=== PATIENT | male | born 1985 ===

== ENCOUNTER 2022-03-10 06:17 | Day surgery (SDC) | payer OTHER ==
[~2022-03-10] VITALS: Ht 172.7 cm; Wt 89.8 kg
[~2022-03-10 06:17] MED LIST: ZESTRIL10 M1 PO
[2022-03-10] MEDS ORDERED: NEURONTIN600 M1 PO (12:45)
[2022-03-10] MEDS ORDERED: PERCOCET 5-3251 EACH PO (12:45)
[2022-03-10] MEDS ORDERED: POLY119PG PO (12:45)
== END 2022-03-10 15:20 | disposition home or self-care (01) ==
LOC: CIR.AMB 06:17
PROVIDERS: ATTEND Surgery
DX: K42.0 Umbilical hernia with obstruction, without gangrene (principal); I10 Essential (primary) hypertension; F17.210 Nicotine dependence, cigarettes, uncomplicated
CPT/HCPCS: 49653; C1781